=== PATIENT | male | born 1960 | race Caucasian/White ===

== ENCOUNTER 2016-03-30 13:08 | Emergency (ER) | payer OTHER ==
[~2016-03-30] VITALS: Ht 167.6 cm; Wt 79.4 kg
[~2016-03-30 13:08] MED LIST: AMITIZA24 MC1 PO; ASPIR 8181 MG PO; ATORVASTATIN CA40 MG PO; CLONAZEPAM1 MG PO; CYCLOBENZAPRINE10 MG PO; DILAUDID 4 MG TA4 MG PO; DULOXETINE HCL30 MG PO; ERYTHROMYCIN5 MG/GM TOP; FLEXERIL10 MG PO; GABAPENTIN300 MG PO; GABAPENTIN400 M2 PO; HUMALOG 100U100 U/ML SC; HUMALOG100 UNIT/2 SC; LIDODERM 5% PAT1 PAT TOP; LOSARTAN POTASS50 M1 PO; LOVASTATIN40 MG PO; NASONEX17 GM NASB; OXYCODONE HCL15 M1 PO; OXYCODONE HCL20 M1 PO; OXYCONTIN30 M1 PO; PANCREAZE DR 41 EACH PO; PANTOPRAZOLE SO40 MG PO; PAROXETINE HYDR20 MG PO; PERCOCET 10-321 EACH PO; PERCOCET 325 MG1 TAB PO; POLYETHYLE17 GM/Dos1 PO; TENORMIN25 M1 PO; TOUJEO SOL300 UNIT/1 SC; TRAMADOL HCL50 M1 PO; VENTOLIN H0.09 MG/Ac INH; [UNRECOGNIZED DRUG - OTHER] PO
--- NOTE | 2016-03-30 14:00 | ED AMS/SEIZURE/WEAK/DIZZY ---
History of Present Illness General Chief Complaint: Dizziness Stated Complaint: DIZZY "OFF-BALANCE", DAZED X1HR, DIFF BREATHING Source: patient Exam Limitations: no limitations Vital Signs & Intake/Output Vital Signs & Intake/Output Vital Signs Date Time Temp Pulse Resp B/P Pulse O2 O2 Flow FiO2 Ox Delivery Rate 03/30 1613 97.0 70 15 106/60 98 Room Air Room Air 03/30 1449 97 Room Air 03/30 1322 97.7 64 20 112/66 97 Room Air Allergies Coded Allergies: NO KNOWN ALLERGIES (02/15/14) Reconcile Medications Albuterol Sulfate (Ventolin Hfa) 90 MCG HFA.AER.AD 2 PUFF INH PRN DYSPNEA ( Reported) Amoxicillin/Potassium Clav (Augmentin 875-125 Tablet) 875 MG-125 MG TABLET 1 TAB PO BID OTITIS MEDIA Aspirin (Ecotrin) 81 MG TABLET.DR 1 TAB PO BID HEART (Reported) Atenolol (Tenormin) 25 MG TABLET 0.5 TAB PO DAILY BP (Reported) Atorvastatin Calcium (Lipitor) 40 MG TAB 1 TAB PO DAILY CHOLESTEROL (Reported ) Clonazepam 1 MG TABLET 1 TAB PO BID PRN MUSCLE CRAMPS (Reported) Duloxetine HCl 30 MG CAPSULE.DR 1 CAP PO DAILY NERVE PAIN (Reported) Gabapentin 400 MG CAPSULE 2 CAP PO TID NERVE PAIN (Reported) Insulin Glargine,Hum.rec.anlog (Toujeo Solostar) 300 UNIT/1 ML INSULN.PEN 80 UNIT SC DAILY DIABETES (Reported) Insulin Lispro (Humalog) 100 UNIT/1 ML VIAL DIABETES (Reported) Lidocaine HCl (Lidoderm Patch) 5 % PAT 2 PAT TOP DAILY PAIN (Reported) may wear up to 12 hours Lipase/Protease/Amylase (Pancreaze Dr 4,200 Unit Cap) 1 EACH CAPSULE. 4-6 CAP PO 4XD WM PANCREASE (Reported) Losartan Potassium 50 MG TABLET 1 TAB PO DAILY LIVER/KIDNEY (Reported) Lubiprostone (Amitiza) 24 MCG CAPSULE 1 CAP PO BID CONSTIPATION (Reported) Meclizine HCl 25 MG TABLET 1 TAB PO TIDPRN PRN ROOM SPINNING SENSATION Mometasone Furoate (Nasonex) 17 GM SPRAY.PUMP 1 SPRAY NASB PRN CONGESTION ( Reported) Pantoprazole Sodium 40 MG TABLET.DR 1 TAB PO DAILY AC GI (Reported) PAROXETINE HCL (Paroxetine Hydrochloride) 20 MG TABLET 1 TAB PO DAILY ANXIETY (Reported) Polyethylene Glycol 3350 (Polyethylene Glycol (3350)) 17 GRAM POWD.PACK 1-2 TBSP PO DAILY CONSTIPATION (Reported) Scopolamine Hydrobromide (Transderm-Scop) 1.5MG/3DAY PATCH.TD.3 1 PAT TOP Q3D PRN VERTIGO apply to the hairless area behind 1 ear at least 4 hours before effect is required; reapply every 3 days as needed Triage Note: PT C/O FEELING LIGHTHEADED TODAY. PT STATES THE ROOM IS SPINNING. PT STATES DIFFICULTY BREATHING, DENIES CP Triage Nurses Notes Reviewed? yes Onset: Gradual Duration: constant Timing: recent history Severity: moderate Severity Numbers: 5 HPI: Patient is a 56-year-old male with a past medical history of pancreatitis who presents to emergency room with concerns of room spinning sensation noted today. Patient states that on last week he received nuclear stress test with unremarkable findings patient the following day received his pneumonia vaccine in which patient states in the last 3 days he's noticed a gradual onset of right ear discomfort and fullness which patient states that he's had significant ear infections in the past and which he let his primary care doctor no about his symptoms and which she called in a prescription of amoxicillin. Patient states that today he's had persistent room spinning sensation made worse with head movements and has had mild nausea. Denies any fever, chills, headache blurred vision abdominal pain chest pain arm pain jaw pain Patient does state that he's had a history of this with previous ear infections of room spinning symptoms (GRISEL JOE) Past History Travel History Traveled to [place] past 21 day No Medical History Any Pertinent Medical History? see below for history Neurological: NONE EENT: NONE Cardiovascular: NONE Respiratory: NONE Gastrointestinal: NONE Hepatic: NONE Renal: NONE Musculoskeletal: CHRONIC RIGHT SHOULDER PAIN Psychiatric: NONE Endocrine: diabetes, PANCREATITIS Blood Disorders: NONE Cancer(s): NONE CPR INSTRUCTOR/Reproductive: NONE Other Medical Hx: C1 BURST FRACTURE History of MRSA: No History of VRE: No History of CDIFF: No Surgical History Surgical History: cholecystectomy Psychosocial History Who do you live with Significant Other Services at Home None What is your primary language Indian Tobacco Use: Current Daily Use Daily Tobacco Use Amount/Type: => 5 Cigarettes daily ETOH Use: denies use Illicit Drug Use: denies illicit drug use Family History Family History, If Any: FATHER (acute [place] at age 47yo). MOTHER (heart disease). Hx Contributory? No (GRISEL JOE) Review of Systems Review of Systems Constitutional: Reports: no symptoms. EENTM: Reports: see HPI, ear pain. Respiratory: Reports: no symptoms. Cardiovascular: Reports: no symptoms. GI: Reports: see HPI, nausea. Genitourinary: Reports: no symptoms. Musculoskeletal: Reports: no symptoms. Skin: Reports: no symptoms. Neurological/Psychological: Reports: no symptoms. Hematologic/Endocrine: Reports: no symptoms. Immunologic/Allergic: Reports: no symptoms. All Other Systems: Reviewed and Negative (GRISEL JOE) Physical Exam Physical Exam General Appearance: no apparent distress, alert, comfortable Comments: Well-developed well-nourished person in no acute distress HEENT: , extraocular motion intact, no nystagmus. Pupils equally round and reactive to light and accommodation. Nose is atraumatic. External auditory canal normal inspection, right tympanic membrane erythematous. Pharynx normal. No swelling or edema. Neck: Supple, no lymphadenopathy, normal range of motion without pain or tenderness Back: Nontender, no CVA tenderness. Cardiovascular: Regular rate and rhythms no murmurs rubs or gallops, normal JVP Respiratory: Chest nontender. No respiratory distress.breath sounds clear to auscultation bilaterally Abdomen: Soft, nontender nondistended, no appreciable organomegaly. Normal bowel sounds. No ascites Extremity: No edema, no calf tenderness to palpation, normal and equal pulses. Neuro: Alert oriented x3, motor sensory normal, cranial nerves II through XII grossly intact. Modify Zan-Hallpike reproduced room spinning sensation Skin: No appreciable rash on exposed skin, skin is warm and dry. Psych: Mood and affect is normal, memory and judgment is normal. Core Measures ACS in differential dx? Yes CVA/TIA Diagnosis: No Severe Sepsis Present: No Septic Shock Present: No (GRISEL JOE) Progress Differential Diagnosis: arrythmia, alcohol intoxication, anemia, benign positional vertigo, CVA/stroke, dehydration, drug intoxication, encephalitis, electrolyte imbalance, GI bleed, hypoglycemia, hypoxia, intracranial Hem., intracranial mass/tumor, labrynthitis, meningitis, Meniere's disease, migraine MURRAY, multiple sclerosis, pneumonia, postural hypotension, presyncope, post- traumatic vertigo, sepsis, seizure disorder, subarachnoid Hem., UTI/pyelo, vertebrobasilar insuff, OTITIS MEDIA, OTITIS EXTERNA Plan of Care: Orders Procedure Date/time Status TROPONIN LEVEL 03/30 1359 Complete LIPASE 03/30 1359 Complete COMPREHENSIVE METABOLIC PANEL 03/30 1359 Complete CBC WITHOUT DIFFERENTIAL 03/30 1359 Complete AMYLASE 03/30 1359 Complete EKG 03/30 1310 Active Laboratory Tests 03/30/16 1428: Anion Gap 11, Estimated GFR > 60, BUN/Creatinine Ratio 12.9, Glucose 154 H, Calcium 9.6, Total Bilirubin 0.6, AST 24, ALT 24, Alkaline Phosphatase 70, Troponin I < 0.01, Total Protein 6.3, Albumin 3.8, Globulin 2.5, Albumin/ Globulin Ratio 1.5, Amylase < 30 L, Lipase 17 L, CBC w Diff NO MAN DIFF REQ, RBC 4.82, MCV 89.1, MCH 30.3, RDW 14.0, MPV 8.5, Gran % 71.8, Lymphocytes % 21.7 , Monocytes % 5.6, Eosinophils % 0.6, Basophils % 0.3, Absolute Granulocytes 4.8 , Absolute Lymphocytes 1.5, Absolute Monocytes 0.4, Absolute Eosinophils 0, Absolute Basophils 0, PUBS MCHC 34.0 Patient had normal steady gait Patient has concerns of right otitis media and vertigo positional symptoms. Patient currently resting comfortably on gurney. Patient again had normal steady gait upon discharge patient looks well no apparent distress blood work was unremarkable EKG unremarkable I stressed the importance of close follow-up to primary care doctor on Monday and patient will comply. (GRISEL JOE) Initial ED EKG: normal p-waves, normal QRS complex, 62 BPM NORMAL SINUS RHYTHM, LAD (GRISEL JOE) Departure Departure Disposition: HOME OR SELF CARE Condition: Stable Clinical Impression Primary Impression: Otitis media, right Secondary Impressions: Positional vertigo Referrals: STEFFANY FLOREZ,JIM Ho (PCP/Family) Additional Instructions: As discussed begin the prescription of Augmentin as directed for the full course. Begin the prescription of meclizine and scopolamine for your room spinning sensation symptoms. If symptoms worsen or if you develop a new onset of concerning symptom return to the emergency room immediately. On Monday if you do not feel better follow-up with your primary care doctor. Departure Forms: Customer Survey General Discharge Information Prescriptions: Current Visit Scripts Amoxicillin/Potassium Clav (Augmentin 875-125 Tablet) 1 TAB PO BID #20 TAB Meclizine HCl 1 TAB PO TIDPRN PRN ROOM SPINNING SENSATION #30 TAB Scopolamine Hydrobromide (Transderm-Scop) 1 PAT TOP Q3D PRN VERTIGO #4 PAT apply to the hairless area behind 1 ear at least 4 hours before effect is required; reapply every 3 days as needed (GRISEL JOE) PA/LEATHER PRODUCTS SUPERVISOR Co-Sign Statement Statement: ED Attending supervision documentation- [] I saw and evaluated the patient. I have also reviewed all the pertinent lab results and diagnostic results. I agree with the findings and the plan of care as documented in the PA's/LEATHER PRODUCTS SUPERVISOR's documentation. [x I have reviewed the ED Record and agree with the PA's/LEATHER PRODUCTS SUPERVISOR's documentation. [] Additions or exceptions (if any) to the PAs/LEATHER PRODUCTS SUPERVISOR's note and plan are summarized below: [] (LINCOLN IRAHETA DO)
[2016-03-30 14:41] LABS: ABSOLUTE BASOPHIL COUNT 0 /CUMM (0.0-0.2); ABSOLUTE EOSINOPHIL COUNT 0 /CUMM (0.0-0.7); ABSOLUTE GRANULOCYTE CT 4.8 /CUMM (1.4-6.5); ABSOLUTE LYMPH COUNT 1.5 /CUMM (1.2-3.4); ABSOLUTE MONOCYTE COUNT 0.4 /CUMM (0.10-0.60); BASOPHIL % 0.3 % (0.0-2.0); EOSINOPHIL % 0.6 % (0-5); GRANULOCYTE % 71.8 % (42.2-75.2); HEMATOCRIT 42.9 % (42-52); MEAN CORPUSCULAR HGB 30.3 PG (27.0-31.0); MEAN CORPUSCULAR VOLUME 89.1 FL (80.0-94.0); MEAN PLATELET VOLUME 8.5 FL (7.4-10.4); PLATELET COUNT 121 /CUMM (130-400); RED BLOOD CELL CT 4.82 /CUMM (4.70-6.10); WHITE BLOOD CELL COUNT 6.7 /CUMM (4.8-10.8)
[2016-03-30] MEDS ORDERED: MECLIZINE HCL25 MG PO (15:38)
[2016-03-30] MEDS ORDERED: AUGMENTIN 875-1 EACH PO (15:38)
[2016-03-30] MEDS ORDERED: TRANSDERM-SCOP1 EACH TOP (15:38)
[2016-03-30 16:13] VITALS: BP 106/60
[2016-08-19] MEDS ORDERED: LANTUS SOL100 UNIT/1 SC (08:56)
[2016-08-19] MEDS ORDERED: PAXIL40 M1 PO (08:57)
[2016-08-19] MEDS ORDERED: OMEPRAZOLE40 M1 PO (08:57)
== END 2016-03-30 16:13 ==
LOC: ERH 13:08
PROVIDERS: Physician Assistant
DX: H66.91 Otitis media, unspecified, right ear (principal); H81.10 Benign paroxysmal vertigo, unspecified ear
CPT/HCPCS: 93005; 93010; J3101

== ENCOUNTER 2016-06-22 16:10 | Emergency (ER) | payer OTHER ==
[~2016-06-22] VITALS: Ht 167.6 cm; Wt 81.6 kg
[~2016-06-22 16:10] MED LIST changes: +AUGMENTIN 875-1 EACH PO; +MECLIZINE HCL25 MG PO; +TRANSDERM-SCOP1 EACH TOP
--- NOTE | 2016-06-22 19:12 | ED UPPER/LOWER EXTREMITY COMPL ---
History of Present Illness General Chief Complaint: Upper Extremity Injury Stated Complaint: LFT SHOULDER PAIN Source: patient Exam Limitations: no limitations Vital Signs & Intake/Output Vital Signs & Intake/Output Vital Signs Date Time Temp Pulse Resp B/P Pulse O2 O2 Flow FiO2 Ox Delivery Rate 06/22 2029 98.2 70 16 140/80 98 Room Air Room Air 06/22 1942 97 Room Air 06/22 1617 97.2 64 16 133/70 97 Room Air Allergies Coded Allergies: NO KNOWN ALLERGIES (02/15/14) Reconcile Medications Albuterol Sulfate (Ventolin Hfa) 90 MCG HFA.AER.AD 2 PUFF INH PRN DYSPNEA ( Reported) Amoxicillin/Potassium Clav (Augmentin 875-125 Tablet) 875 MG-125 MG TABLET 1 TAB PO BID OTITIS MEDIA Aspirin (Ecotrin) 81 MG TABLET.DR 1 TAB PO BID HEART (Reported) Atenolol (Tenormin) 25 MG TABLET 0.5 TAB PO DAILY BP (Reported) Atorvastatin Calcium (Lipitor) 40 MG TAB 1 TAB PO DAILY CHOLESTEROL (Reported ) Clonazepam 1 MG TABLET 1 TAB PO BID PRN MUSCLE CRAMPS (Reported) Duloxetine HCl 30 MG CAPSULE.DR 1 CAP PO DAILY NERVE PAIN (Reported) Gabapentin 400 MG CAPSULE 2 CAP PO TID NERVE PAIN (Reported) Insulin Glargine,Hum.rec.anlog (Touhodan Jonas) 300 UNIT/1 ML INSULN.PEN 80 UNIT SC DAILY DIABETES (Reported) Insulin Lispro (Humalog) 100 UNIT/1 ML VIAL DIABETES (Reported) Lidocaine HCl (Lidoderm Patch) 5 % PAT 2 PAT TOP DAILY PAIN (Reported) may wear up to 12 hours Lipase/Protease/Amylase (Pancreaze Dr 4,200 Unit Cap) 1 EACH CAPSULE.DR 4-6 CAP PO 4XD WM PANCREASE (Reported) Losartan Potassium 50 MG TABLET 1 TAB PO DAILY LIVER/KIDNEY (Reported) Lubiprostone (Amitiza) 24 MCG CAPSULE 1 CAP PO BID CONSTIPATION (Reported) Meclizine HCl 25 MG TABLET 1 TAB PO TIDPRN PRN ROOM SPINNING SENSATION Mometasone Furoate (Nasonex) 17 GM SPRAY.PUMP 1 SPRAY NASB PRN CONGESTION ( Reported) Pantoprazole Sodium 40 MG TABLET.DR 1 TAB PO DAILY AC GI (Reported) PAROXETINE HCL (Paroxetine Hydrochloride) 20 MG TABLET 1 TAB PO DAILY ANXIETY (Reported) Polyethylene Glycol 3350 (Polyethylene Glycol (3350)) 17 GRAM POWD.PACK 1-2 TBSP PO DAILY CONSTIPATION (Reported) Scopolamine Hydrobromide (Transderm-Scop) 1.5MG/3DAY PATCH.TD.3 1 PAT TOP Q3D PRN VERTIGO apply to the hairless area behind 1 ear at least 4 hours before effect is required; reapply every 3 days as needed Triage Note: PT STATES HE IS HAVING LEFT SHOULDER PAIN FOR A WHILE. PT SAYS HIS LEFT ROTATOR CUFF "IS SHOT" PT CALLED HIS ORTHO MD AND WAS TOLD HE CAN'T GET AN APPOINTMENT FOR A WHILE. PT STATES HE ALSO HAS BACK PROBLEMS AND HAD 20 INJECTIONS IN HIS BACK YESTERAY. A Triage Nurses Notes Reviewed? yes Onset: Gradual Duration: worse persistent since (1 year) Timing: recent history Severity: moderate Severity Numbers: 8 Pain/Injury Location: Left: Shoulder. Method of Injury: old injury Modifying Factors: Improves With: immobilization. Worsens With: movement. HPI: Patient is a 56-year-old male with history of chronic shoulder issues presenting to the emergency Department chief complaint of left shoulder pain 1 year. Patient reports long history of right shoulder pain and injury and has been compensating with his left upper extremity. Over the past year he still develop worsening pain. No system injury. Pain is worse with range of motion and palpation. Has been taking Aleve, aspirin [id number] with no relief. Denies numbness or tingling. He has reports long-standing history of chronic back pain for which he gets injections. Denies any chest pain palpitations or shortness of breath. (ALLISON FORD,CYNDI) Past History Travel History Traveled to [place] past 21 day No Medical History Any Pertinent Medical History? see below for history Neurological: NONE EENT: NONE Cardiovascular: NONE Respiratory: NONE Gastrointestinal: NONE Hepatic: NONE Renal: NONE Musculoskeletal: CHRONIC RIGHT SHOULDER PAIN Psychiatric: NONE Endocrine: diabetes, PANCREATITIS Blood Disorders: NONE Cancer(s): NONE FOUNDRY HAND/Reproductive: NONE Other Medical Hx: C1 BURST FRACTURE History of MRSA: No History of VRE: No History of CDIFF: No Surgical History Surgical History: cholecystectomy Psychosocial History Who do you live with Significant Other Services at Home None What is your primary language Bolivian Tobacco Use: Quit >30 days ago ETOH Use: denies use Illicit Drug Use: denies illicit drug use Family History Family History, If Any: FATHER (acute [place] at age 47yo). MOTHER (heart disease). Hx Contributory? No (CYNDI CHO) Review of Systems Review of Systems Constitutional: Reports: no symptoms. Comments Review of systems: See HPI, All other systems negative. Constitutional, no chills fever or weight loss HEENT: No visual changes no sore throat no congestion Cardiovascular: No chest pain ,palpitation Skin, no jaundice no rashes Respiratory: No dyspnea cough sputum or hemoptysis GI: No nausea no vomiting Muscle skeletal: no back pain, no neck pain, Neurologic: No numbness no confusion Psych: No stress anxiety or depression,. Heme/endocrine: No bruising no bleeding no polyuria or polydipsia Immunology: No splenectomy or history of AIDS (CYNDI CHO) Physical Exam Physical Exam General Appearance: well developed/nourished, no apparent distress, alert, awake , comfortable Comments: Well-developed well-nourished person in no acute distress HEENT: Pupils equally round and reactive to light and accommodation. Nose is atraumatic. Neck: Supple, no lymphadenopathy, normal range of motion without pain or tenderness, full range of motion. No C-spine tenderness. Back: Tender to palpation in the thoracic and lumbar paraspinal region. No bony tenderness. Near full range of motion somewhat limited secondary to pain. Negative modified straight leg raise bilaterally. Cardiovascular: Regular rate and rhythms no murmurs rubs or gallops, normal JVP Respiratory: Chest nontender. No respiratory distress.breath sounds clear to auscultation bilaterally Extremity: No edema, tender to palpation over the left ac joint. Limited range of motion of left shoulder secondary to pain. Pain at approximately 35 of left shoulder abduction. Pain with internal and external rotation of the left shoulder. No obvious deformity appreciated over the left shoulder. No pain to palpation over the left olecranon, forearm. Neuro: Alert oriented x3, motor sensory normal Skin: No appreciable rash on exposed skin, skin is warm and dry. Psych: Mood and affect is normal, memory and judgment is normal. (CYNDI CHO) Progress Differential Diagnosis: contusion, dislocation, fracture, sprain, tendon injury, calcific tendinitis, frozen shoulder Plan of Care: Orders Procedure Date/time Status Durable Medical Equipment 06/22 1916 Active Diagnostic Imaging: Viewed by Me: Radiology Read. Discussed w/RAD: Radiology Read. Radiology Impression: PATIENT: CLEMENT GARCIA PRESENT AGE: 56 PATIENT ACCOUNT NO: [id number] : 62 LOCATION: [facility] ORDERING PHYSICIAN: CYNDI FORD SERVICE DATE: 06/22/16 EXAM TYPE: RAD - XRY-SHOULDER COMPLETE-LEFT EXAMINATION: SHOULDER 3 VIEWS, LEFT CLINICAL INFORMATION: Left shoulder pain following injury. COMPARISON: 07/16/2014. TECHNIQUE: AP views of the left shoulder were obtained in internal and external rotation. In addition, a Y view was obtained. FINDINGS: There are no fractures or dislocations. The humeral head is seated within a well-formed glenoid. The AC joint is intact. There is mild degenerative change to the left AC joint. IMPRESSION: No evidence for acute injury to the left shoulder. DICTATED BY: KAITLIN AGUSTIN MD DATE/TIME DICTATED:06/22/161955 LUMBER PLANER:LETICIA DATE/TIME TRANSCRIBED:06/22/161955 Comments: Patient informed of x-ray results. Visual likely need MRI. He will continue taking at home pain medication and muscle relaxer as previously prescribed. Patient placed in sling. Patient nontoxic. He will also follow his glucose level to home. (CYNDI CHO) Departure Departure Time of Disposition: 2001 Disposition: HOME OR SELF CARE Condition: Stable Clinical Impression Primary Impression: Shoulder strain Qualifiers: Encounter type: initial encounter Laterality: left Qualified Code: S46.912A - Strain of unspecified muscle, fascia and tendon at shoulder and upper arm level, left arm, initial encounter Secondary Impressions: Diabetes Qualifiers: Diabetes mellitus type: type 1 Diabetes mellitus complication status: without complication Qualified Code: E10.9 - Type 1 diabetes mellitus without complications Referrals: NEFTALI FLOREZ,JIM JETER MD,JIM Ho (PCP/Family) Additional Instructions: Follow-up with orthopedics he may need MRI of your shoulder for further evaluation. Wear sling for comfort. He said prescribed muscle relaxers and pain medication. Return for worsening symptoms or concerns. Departure Forms: Customer Survey General Discharge Information (CYNDI CHO) PA/FIELD TECHNICIAN Co-Sign Statement Statement: ED Attending supervision documentation- [] I saw and evaluated the patient. I have also reviewed all the pertinent lab results and diagnostic results. I agree with the findings and the plan of care as documented in the PA's/FIELD TECHNICIAN's documentation. [X] I have reviewed the ED Record and agree with the PA's/FIELD TECHNICIAN's documentation. [] Additions or exceptions (if any) to the PAs/FIELD TECHNICIAN's note and plan are summarized below: [] (FELICIA FLOREZ,LIBBY Kelley) Procedures Splinting Location: left shoulder Manual Alignment Performed: No Pre-Made Type: velcro Splint: sling Splint Applied By: splint applied by other (nursing) Pre-Proc Neuro Vasc Exam: normal Post-Proc Neuro Vasc Exam: normal Progress: Patient tolerated procedure well. (ALLISON FORD,CYNDI)
--- NOTE | 2016-06-22 20:01 | RADIOLOGY REPORT ---
EXAMINATION: SHOULDER 3 VIEWS, LEFT CLINICAL INFORMATION: Left shoulder pain following injury. COMPARISON: 07/16/2014. TECHNIQUE: AP views of the left shoulder were obtained in internal and external rotation. In addition, a Y view was obtained. FINDINGS: There are no fractures or dislocations. The humeral head is seated within a well-formed glenoid. The AC joint is intact. There is mild degenerative change to the left AC joint. IMPRESSION: No evidence for acute injury to the left shoulder.
[2016-06-22 20:30] VITALS: BP 140/80
[2016-08-19] MEDS ORDERED: LANTUS SOL100 UNIT/1 SC (08:56)
[2016-08-19] MEDS ORDERED: OMEPRAZOLE40 M1 PO (08:57)
[2016-08-19] MEDS ORDERED: PAXIL40 M1 PO (08:57)
== END 2016-06-22 20:31 ==
LOC: ERH 16:10
DX: S46.912A Strain of unspecified muscle, fascia and tendon at shoulder and upper arm level, left arm, initial encounter (principal); E11.9 Type 2 diabetes mellitus without complications; X58.XXXA Exposure to other specified factors, initial encounter
CPT/HCPCS: 73030-LT; 96372; J1815

== ENCOUNTER 2016-08-25 20:12 | Emergency (ER) | payer OTHER ==
[2016-08-25 20:29] VITALS: BP 113/70
--- NOTE | 2016-08-25 20:54 | ED GENERAL ADULT ---
History of Present Illness General Chief Complaint: General Adult Stated Complaint: WANTS BIGGER SLING, S/P SHOULDER SURGERY TODAY Source: patient Exam Limitations: no limitations Vital Signs & Intake/Output Vital Signs & Intake/Output Vital Signs Date Time Temp Pulse Resp B/P B/P Pulse O2 O2 Flow FiO2 Mean Ox Delivery Rate 08/25 2028 97.2 88 20 113/70 98 ED Intake and Output 08/26 0000 08/25 1200 Intake Total Output Total Balance Patient 180 lb Weight Allergies Coded Allergies: NO KNOWN ALLERGIES (02/15/14) Reconcile Medications Aspirin (Ecotrin) 81 MG TABLET.DR 1 TAB PO BID HEART (Reported) Atenolol (Tenormin) 25 MG TABLET 0.5 TAB PO DAILY BP (Reported) Atorvastatin Calcium (Lipitor) 40 MG TAB 1 TAB PO DAILY CHOLESTEROL (Reported ) Clonazepam 1 MG TABLET 1 TAB PO BID PRN MUSCLE CRAMPS (Reported) Gabapentin 400 MG CAPSULE 2 CAP PO TID NERVE PAIN (Reported) Insulin Glargine,Hum.rec.anlog (Lantus Solostar) 100 UNIT/ML (3 ML) INSULN.PEN 80 UNIT SC QPM DM II (Reported) Insulin Lispro (Humalog) 100 UNIT/1 ML VIAL DIABETES (Reported) Lidocaine HCl (Lidoderm Patch) 5 % PAT 2 PAT TOP DAILY PAIN (Reported) may wear up to 12 hours Lipase/Protease/Amylase (Pancreaze Dr 4,200 Unit Cap) 1 EACH CAPSULE. 4-6 CAP PO 4XD WM PANCREASE (Reported) Losartan Potassium 50 MG TABLET 1 TAB PO DAILY LIVER/KIDNEY (Reported) Lubiprostone (Amitiza) 24 MCG CAPSULE 1 CAP PO BID PRN CONSTIPATION (Reported ) Omeprazole 40 MG CAPSULE.DR 1 CAP PO DAILY GERD (Reported) Paroxetine HCl (Paxil) 40 MG TABLET 1 TAB PO DAILY DEPRESSION (Reported) Scopolamine Hydrobromide (Transderm-Scop) 1.5MG/3DAY PATCH.TD.3 1 PAT TOP Q3D PRN VERTIGO apply to the hairless area behind 1 ear at least 4 hours before effect is required; reapply every 3 days as needed Triage Note: PT HERE FOR BETTER SLING DOES NOT LIKE THE ONE HE WAS DISCHARGED FROM PROCEDURE TODAY. Triage Nurses Notes Reviewed? yes Onset: Abrupt Duration: day(s): Timing: recent history HPI: 08/25/16 9 PM Patient status post surgery to the left rotator cuff earlier today. He was discharged and is requesting a different sling. On physical exam his left arm is in a right Velcro sling. The left hand has normal coloration. There is an excellent left radial pulse. He has free range of motion to the wrist. I spoke with the on-call orthopedist Conner Lyon MD. He agreed with the plan to change the sling to a shoulder immobilizer. The patient will notify Dr. Blood in the a.m. Onset of the symptoms abrupt. Duration was today. Severity was significant as he required emergency department evaluation. No associated symptoms. Past History Travel History Traveled to [place] past 21 day No Medical History Any Pertinent Medical History? see below for history Neurological: NONE EENT: NONE Cardiovascular: NONE Respiratory: NONE Gastrointestinal: NONE Hepatic: NONE Renal: NONE Musculoskeletal: CHRONIC RIGHT SHOULDER PAIN Psychiatric: NONE Endocrine: diabetes, PANCREATITIS Blood Disorders: NONE Cancer(s): NONE HISTORICAL SITE GUIDE/Reproductive: NONE Other Medical Hx: C1 BURST FRACTURE History of MRSA: No History of VRE: No History of CDIFF: No Surgical History Surgical History: cholecystectomy Psychosocial History Who do you live with Significant Other Services at Home None What is your primary language Yakut Tobacco Use: Current Daily Use Daily Tobacco Use Amount/Type: => 5 Cigarettes daily Family History Family History, If Any: FATHER (acute [place] at age 47yo). MOTHER (heart disease). Hx Contributory? No Review of Systems Review of Systems Constitutional: Denies: fever. EENTM: Reports: no symptoms. Respiratory: Reports: no symptoms. Cardiovascular: Reports: no symptoms. GI: Reports: no symptoms. Genitourinary: Reports: no symptoms. Musculoskeletal: Reports: see HPI. Skin: Reports: no symptoms. Neurological/Psychological: Reports: no symptoms. Hematologic/Endocrine: Reports: no symptoms. Immunologic/Allergic: Reports: no symptoms. Physical Exam Physical Exam General Appearance: alert, awake, mild distress Head: atraumatic, normal appearance Eyes: Bilateral: normal appearance, PERRL, EOMI. Ears, Nose, Throat: normal ENT inspection Neck: normal inspection Respiratory: no respiratory distress Cardiovascular: regular rate/rhythm Peripheral Pulses: 4+ radial (L) Back: normal range of motion Extremities: limited range of motion, LEFT SHOULDER Neurologic/Psych: no motor/sensory deficits, awake, alert, oriented x 3 Skin: intact, normal color, warm/dry Comments: The patient's left arm is in a sling. He was given a shoulder immobilizer. The case was discussed with Conner Lyon MD. He will follow-up with Dr. Blood tomorrow. Core Measures ACS in differential dx? No CVA/TIA Diagnosis: No Severe Sepsis Present: No Septic Shock Present: No Progress Differential Diagnoses I considered the following diagnoses in my evaluation of the patient: [ Compartment syndrome, postoperative pain] Plan of Care: Orders Procedure Date/time Status Durable Medical Equipment 08/25 2102 Active Initial ED EKG: none Departure Departure Disposition: HOME OR SELF CARE Condition: Stable Clinical Impression Primary Impression: Postoperative pain of extremity Referrals: STEFFANY FLOREZ,JIM Ho (PCP/Family) Departure Forms: Customer Survey General Discharge Information Critical Care Note Critical Care Note Critical Care Time: non-applicable
== END 2016-08-25 21:18 ==
LOC: ERH 20:12
DX: G89.18 Other acute postprocedural pain (principal)

== ENCOUNTER → 2016-08-25 | Day surgery (SDC) | payer OTHER ==
[~2016-08-25] VITALS: Ht 167.6 cm; Wt 81.6 kg
[~2016-08-25] MED LIST changes: +LANTUS SOL100 UNIT/1 SC; +OMEPRAZOLE40 M1 PO; +PAXIL40 M1 PO
--- NOTE | 2016-08-25 16:18 | Operative Report ---
Operative/Inv Procedure Report Surgery Date: 08/25/16 Name of Procedure: #1 arthroscopic rotator cuff repair left shoulder with Arthrex suture bridge technique Pre-Operative Diagnosis: Rotator cuff tear left shoulder #2 acromioclavicular arthritis left shoulder #3 subacromial impingement left shoulder Post-Operative Diagnosis: Same Estimated Blood Loss: scant Surgeon/Comber Tender: NEFTALI FLOREZ,JIM FORD Anesthesia: general endotracheal tube, block Complications: None Condition: Stable returned to recovery room Operative Indication: A 56-year-old male who developed pain and weakness in his left shoulder. An MRI revealed a complete tear of the rotator cuff. His x-rays also revealed acromioclavicular arthritis and a large anterior acromial spur. He is now admitted to repair his rotator cuff. A course of conservative treatment failed Operative/Procedure Note Note: After satisfactory scalene block had been obtained in the preoperative area the patient received preoperative antibiotics and was taken to the operating room where general anesthetic was administered. A second pair of skilled hands was required for the successful completion of this operation. Mr. Jimmy Freitas a certified PA assisted in visualization , implant positioning'and patient positioning. His presence was required for the successful outcome of this operation. The patient was placed in a beachchair position and all bony prominences are well-padded. A padded miller head wet process was utilized. The left upper extremity was then prepped and draped in usual sterile fashion. A posterior portal was made and the glenohumeral joint was entered without difficulty. Patient had marked synovitis of the glenoid humeral joint. An anterior portal was made and the biceps tendon was pulled into the joint. There was no fraying noted. The labrum was intact. Glenoid humeral joint revealed no significant arthritic change. A arthroscopic ablator was used to debride the synovitis from the glenoid humeral joint. The undersurface of the rotator cuff was inspected. The patient had a large fishmouth shaped tear of the supraspinatus. The edges of the cuff for debrided and the footprint was also debrided of soft tissue. A motorized shaver was then used to decorticate the anatomic footprint and this afforded a good bleeding bed for later attachment of the cuff. The scope was then removed from the glenohumeral joint and repositioned in the subacromial space. The arthroscopic ablator was used to perform a bursectomy. Bursa was resected off the anterior acromion to visualize a large anterior acromial spur. A motorized shaver was then used to remove the anterior acromial spur. The distal acromioclavicular joint was then exposed. The patient had a large inferior clavicular spur and marked arthritis at the acromioclavicular joint A motorized shaver was then used through the anterior portal to resect 10 mm of distal clavicle. Attention was then turned to the rotator cuff. 2 anchors were placed into the anatomic footprint. Sutures were placed through the cuff and then an additional 2 anchors were placed lateral to these. Off was repaired using an Arthrex suture bridge technique. A solid repair was obtained. The shoulder was then copiously irrigated and the portals were closed with 3-0 nylon. Dry sterile dressings were applied over the incisions followed by light compressive dressing blood loss was scant he was returned to the recovery room in excellent condition Discharge Disposition: PACU
== END ==
LOC: STS 01:45
DX: M75.122 Complete rotator cuff tear or rupture of left shoulder, not specified as traumatic (principal); M19.012 Primary osteoarthritis, left shoulder; M25.812 Other specified joint disorders, left shoulder; E11.9 Type 2 diabetes mellitus without complications; Z79.4 Long term (current) use of insulin; I10 Essential (primary) hypertension; K86.1 Other chronic pancreatitis; K21.9 Gastro-esophageal reflux disease without esophagitis; I25.10 Atherosclerotic heart disease of native coronary artery without angina pectoris; J44.9 Chronic obstructive pulmonary disease, unspecified; F17.200 Nicotine dependence, unspecified, uncomplicated
CPT/HCPCS: J0131; J0171; J0690; J2250; J2795

== ENCOUNTER 2017-07-01 19:24 | Emergency (ER) | payer OTHER ==
[~2017-07-01] VITALS: Ht 170.2 cm; Wt 77.1 kg
[2017-07-01 20:03] LABS: ABSOLUTE BASOPHIL COUNT 0 /CUMM (0.0-0.2); ABSOLUTE EOSINOPHIL COUNT 0.1 /CUMM (0.0-0.7); ABSOLUTE GRANULOCYTE CT 11.4 /CUMM (1.4-6.5); ABSOLUTE MONOCYTE COUNT 0.9 /CUMM (0.10-0.60); BASOPHIL % 0.1 % (0.0-2.0); EOSINOPHIL % 0.6 % (0-5); GRANULOCYTE % 73.9 % (42.2-75.2); HEMATOCRIT 42.9 % (42-52); MEAN CORPUSCULAR HGB 30.9 PG (27.0-31.0); MEAN CORPUSCULAR HGB CONC 33.8 G/DL (33.0-37.0); MEAN CORPUSCULAR VOLUME 91.3 FL (80.0-94.0); MEAN PLATELET VOLUME 7.8 FL (7.4-10.4); PLATELET COUNT 171 /CUMM (130-400); RBC DISTRIBUTION WIDTH 13.7 % (11.5-14.5); WHITE BLOOD CELL COUNT 15.4 /CUMM (4.8-10.8)
--- NOTE | 2017-07-01 20:13 | ED GI/GU/ABDOMINAL COMPLAINT ---
History of Present Illness General Chief Complaint: General Adult Stated Complaint: PT HAS PROBLEM BREATHING AND STOMACH PAIN Source: patient, old records Vital Signs & Intake/Output Vital Signs & Intake/Output Vital Signs Date Time Temp Pulse Resp B/P B/P Pulse O2 O2 Flow FiO2 Mean Ox Delivery Rate 07/01 2125 97.8 60 20 96/50 95 Room Air 07/01 2026 113/61 07/01 1930 95.7 76 18 114/65 100 Room Air Allergies Coded Allergies: NO KNOWN ALLERGIES (02/15/14) Reconcile Medications Aspirin (Ecotrin) 81 MG TABLET.DR 1 TAB PO BID HEART (Reported) Atenolol (Tenormin) 25 MG TABLET 0.5 TAB PO DAILY BP (Reported) Atorvastatin Calcium (Lipitor) 40 MG TAB 1 TAB PO DAILY CHOLESTEROL (Reported ) Clonazepam 1 MG TABLET 1 TAB PO BID PRN MUSCLE CRAMPS (Reported) Gabapentin 400 MG CAPSULE 2 CAP PO TID NERVE PAIN (Reported) Insulin Glargine,Hum.rec.anlog (Lantus Solostar) 100 UNIT/ML (3 ML) INSULN.PEN 80 UNIT SC QPM DM II (Reported) Insulin Lispro (Humalog) 100 UNIT/1 ML VIAL DIABETES (Reported) Lidocaine HCl (Lidoderm Patch) 5 % PAT 2 PAT TOP DAILY PAIN (Reported) may wear up to 12 hours Lipase/Protease/Amylase (Pancreaze Dr 4,200 Unit Cap) 1 EACH CAPSULE.DR 4-6 CAP PO 4XD WM PANCREASE (Reported) Losartan Potassium 50 MG TABLET 1 TAB PO DAILY LIVER/KIDNEY (Reported) Lubiprostone (Amitiza) 24 MCG CAPSULE 1 CAP PO BID PRN CONSTIPATION (Reported ) Omeprazole 40 MG CAPSULE.DR 1 CAP PO DAILY GERD (Reported) Paroxetine HCl (Paxil) 40 MG TABLET 1 TAB PO DAILY DEPRESSION (Reported) Scopolamine Hydrobromide (Transderm-Scop) 1.5MG/3DAY PATCH.TD.3 1 PAT TOP Q3D PRN VERTIGO apply to the hairless area behind 1 ear at least 4 hours before effect is required; reapply every 3 days as needed Triage Note: PT TO ER C/C LUQ PAIN X 1 MONTH, WORSENING. +N/V. HX PANCREATITIS. PT ON OXYCODONE FOR PAIN MANAGEMENT OF CHRONIC BACK PAIN. HX OF IDDM Triage Nurses Notes Reviewed? yes HPI: 57M PMH CAD, Type 1 DM on Lantus and Lispro, HLD, h/o gallstone pancreatitis presenting with around 1 month of epigastric pain which was initially dull, but in the past 2 days has become more severe and is now 10/10 and nearly intolerable. He reports some nausea but no vomiting. He has been constipated for the past few weeks with hard stools. He denies fever, chills, headache, sore throat, chest pain, SOB, diarrhea, dysuria. No recent travel or sick contacts. His glucose was 54 on admission, given juice. He is alert and oriented. (Adam Joseph MD) General Exam Limitations: no limitations (Manuel Ayala) Past History Travel History Traveled to [place] past 21 day No Medical History Any Pertinent Medical History? see below for history Neurological: NONE EENT: NONE Cardiovascular: NONE Respiratory: NONE Gastrointestinal: NONE Hepatic: NONE Renal: NONE Musculoskeletal: CHRONIC RIGHT SHOULDER PAIN Psychiatric: NONE Endocrine: diabetes, PANCREATITIS Blood Disorders: NONE Cancer(s): NONE MANAGER LAB/Reproductive: NONE Other Medical Hx: C1 BURST FRACTURE History of MRSA: No History of VRE: No History of CDIFF: No Surgical History Surgical History: cholecystectomy Psychosocial History Who do you live with Significant Other Services at Home None What is your primary language Lithuanian Tobacco Use: Never used Daily Tobacco Use Amount/Type: => 5 Cigarettes daily Family History Family History, If Any: FATHER (acute [place] at age 47yo). MOTHER (heart disease). Hx Contributory? No (Adam Joseph MD) Review of Systems Review of Systems Constitutional: Reports: no symptoms. EENTM: Reports: no symptoms. Respiratory: Reports: no symptoms. Cardiovascular: Reports: no symptoms. GI: Reports: no symptoms. Genitourinary: Reports: no symptoms. Musculoskeletal: Reports: no symptoms. Skin: Reports: no symptoms. Neurological/Psychological: Reports: no symptoms. Hematologic/Endocrine: Reports: no symptoms. Immunologic/Allergic: Reports: no symptoms. All Other Systems: Reviewed and Negative (Adam Joseph MD) Physical Exam Physical Exam General Appearance: well developed/nourished, moderate distress Head: atraumatic, normal appearance Eyes: Bilateral: normal appearance. Ears, Nose, Throat, Mouth: hearing grossly normal, moist mucous membrane Neck: normal inspection, supple Respiratory: normal breath sounds, no respiratory distress Cardiovascular: regular rate/rhythm Gastrointestinal: soft, epigastric tenderness without rebound or guarding Back: normal inspection, normal range of motion Extremities: normal range of motion Neurologic/Psych: awake, alert, oriented x 3, normal mood/affect Skin: intact, normal color, warm/dry (Teresa FLOREZ,Adam) Core Measures ACS in differential dx? Yes Sepsis Present: No Sepsis Focused Exam Completed? No (Divine FORD,Manuel) Progress Differential Diagnosis: AAA, AMI, appendicitis, biliary colic, bowel obstruction , colon cancer, cholecystitis, diverticulitis, epididymitis, esophageal varices, gastritis, hepatitis, hernia, hemorrhoids, ischemic bowel, inflamm bowel dis, Sabine-Bryson tear, orchitis, pancreatitis, prostatitis, peptic ulcer, PUD/GERD, perforated viscous, pyelonephritis, SBO, STD, testicular torsion, ureterolithiasis, urinary retention, urethritis, UTI/pyelo Plan of Care: Orders Procedure Date/time Status URINALYSIS 07/02 2055 Complete MIXED VENOUS BLOOD GAS (GEN) 07/01 1949 Active TROPONIN LEVEL 07/01 1949 Complete LIPASE 07/01 1949 Complete LACTIC ACID 07/01 1949 Complete COMPREHENSIVE METABOLIC PANEL 07/01 1949 Complete CBC WITHOUT DIFFERENTIAL 07/01 1949 Complete Current Medications Sig/Denis Start time Last Medication Dose Stop Time Status Admin Morphine Sulfate 4 MG ONCE ONE 07/01 2014 CAN (MORPHINE SULFATE) 07/02 2015 Sodium Chloride 1,000 ML BOLUS ONE 07/01 2014 AC 07/01 (Normal Saline 0.9%) 07/01 Laboratory Tests 07/01/17 2100: Urine Color YEL, Urine Clarity CLEAR, Urine pH 6.0, Ur Specific [place] <= 1.005 , Urine Protein NEG, Urine Ketones NEG, Urine Nitrite NEG, Urine Bilirubin NEG, Urine Urobilinogen 0.2, Ur Leukocyte Esterase NEG, Ur Microscopic EXAM NOT REQUIRED, Urine Hemoglobin NEG, Urine Glucose NEG 07/01/17 1950: Anion Gap 13, Estimated GFR > 60, BUN/Creatinine Ratio 15.0, Glucose 45 *L, Lactic Acid 0.6 L, Calcium 9.5, Total Bilirubin 0.7, AST 25, ALT 31, Alkaline Phosphatase 79, Troponin I < 0.01, Total Protein 6.9, Albumin 4.1, Globulin 2.8, Albumin/Globulin Ratio 1.5, Lipase 18 L, CBC w Diff NO MAN DIFF REQ, RBC 4.70, MCV 91.3, MCH 30.9, MCHC 33.8, RDW 13.7, MPV 7.8, Gran % 73.9, Lymphocytes % 19.7 L, Monocytes % 5.7, Eosinophils % 0.6, Basophils % 0.1, Absolute Granulocytes 11.4 H, Absolute Lymphocytes 3.0, Absolute Monocytes 0.9 H, Absolute Eosinophils 0.1, Absolute Basophils 0 1999 the case was discussed and signed out to me at this time by Dr. JOSEPH pending ct 2129 on repeat eval pt resting in nad, he is aware of the cyst on pancreas follows up with [facility] and dr stafford. pts bs 45- given oj and crackers- he states he has been having int low sugars for weeks. advised he f/u with his endo, no recent change in his insulin dose or other medications. I discussed with the patient at length all of their results. I had an extensive conversation regarding need for close follow up with their primary care physician this week as well as return precautions. I answered all of their questions, they feel comfortable with the plan and follow-up care. He is declining any medication and go home with he has oxycodone at home for his chronic pain. Symptoms have been present for months, do not believe he requires repeat troponin is as no chest pain. (Manuel Ayala) Initial ED EKG: none (Adam Joseph MD) Departure Departure Condition: Stable Referrals: Gavin FLOREZ,Donny Ho (PCP/Family) Departure Forms: Customer Survey General Discharge Information (Adam Joseph MD) Departure Time of Disposition: 2137 Disposition: HOME OR SELF CARE Clinical Impression Primary Impression: Pancreatic cyst Additional Instructions: Take your pain medication as prescribed. Follow-up with your foam rubber curer next week bland diet. Return with any concerns. (Manuel Ayala)
--- NOTE | 2017-07-01 21:19 | CT SCAN REPORT ---
EXAMINATION: CT ABD PELVIS W IV CONTRAST CLINICAL INFORMATION: Epigastric pain, COMPARISON: Comparison to prior CT from 2015 TECHNIQUE: Multidetector volumetric imaging was performed from the superior aspect of the liver through the pubic symphysis Study done without contrast. Sagittal and coronal reformatted images were obtained on the technologist's workstation. DLP: 415 mGy-cm FINDINGS: LOWER THORAX: Included lung bases are clear. HEPATOBILIARY: Liver is hypodense suggesting hepatic steatosis. GALLBLADDER: Gallbladder not found might have been removed SPLEEN: Spleen mildly enlarged measure about 13 x 9 cm, there is engorgement of the portal vein in the [place] hepatis and around the spleen suggesting portal hypertension. PANCREAS: There is a cystic mass of the pancreatic body measures about 6 3 x 1.4 cm it has not changed from prior study. As previously suggested could be a pseudocyst, versus cystic mass. Stability however is reassuring. STOMACH AND GASTROINTESTINAL TRACT: Stomach is unopacified. Dilated the perigastric veins, suggest varicose veins, portosystemic shunts. There is no bowel distention or thickening. No CT evidence of appendicitis. ADRENALS: No adrenal nodules. KIDNEYS/URETERS: No hydronephrosis, stones or solid mass lesions. URINARY BLADDER: Unremarkable PELVIC VISCERA: Unremarkable PERITONEUM: No free air or fluid. There are shotty normal-sized lymph nodes, no adenopathy. LYMPH NODES: Shotty normal-sized lymph nodes, no adenopathy. VASCULAR: Mild vascular calcifications. BONES, ABDOMINAL WALL AND SOFT TISSUES: Age-appropriate changes of the spine and skeletal system, no destructive osteolytic or osteosclerotic bone lesion found IMPRESSION: 1. Hypodense liver suggesting hepatic steatosis, splenomegaly, engorgement of the portal veins and perisplenic, para gastric prominent veins suggesting portosystemic shunt. No ascites. 2. Gallbladder not found might be contracted or have been removed. 3. Redemonstration of a cystic mass of the body of the pancreas measuring up to 3 x 1.4 cm, this has not changed from prior CT of 2015.
[2017-07-01 21:26] VITALS: BP 96/50
== END 2017-07-01 21:52 ==
LOC: ERH 19:24
PROVIDERS: Internal Medicine
DX: K86.2 Cyst of pancreas (principal)
CPT/HCPCS: 74177; 81003; 96361; 96374